=== PATIENT | male | born 1930 | race Caucasian/White ===

== ENCOUNTER 2016-05-21 13:06 | Observation (INO) | payer MEDICARE ==
--- NOTE | ~2016-05-21 | HP ---
History And Physical [address] [place]. [address] NAME: BRADEN MARTIN Jorgito GARCIA : [birth year] STATUS : ADM Katelin PAT#: [id number] AGE: 86 ADM/REG DATE : 05/21/16 MR#: [id number] REPORT SERV DATE: 05/22/16 DICTATED BY: Gilles HANNA DATE: 05/22/16 REPORT STATUS : Draft TRANSCRIBED BY: MODL DATE: 05/22/16 DATE OF ADMISSION: 05/21/2016 CHIEF COMPLAINT: Right flank pain with right hydronephrosis due to large bladder tumor. HISTORY OF PRESENT ILLNESS: Mr. Martin is an 86-year-old white male, known to me, seen recently for gross hematuria. Workup revealed suspicious cytology for high-grade cancer and an asymmetric partially calcified mass in the bladder near the right UVJ, which appeared to be at least 4 cm to 5 cm in size. There was no obstruction originally. He is scheduled for surgery with resection and possible stent placement on 05/22/2016. He came to the emergency room on the day of admission, complaining of increasing right flank pain over five to six days. No fever or chills. No nausea or vomiting. CT showed a similar tumor about 5 cm in size with right hydronephrosis to the UVJ. He was admitted for pain control. PAST MEDICAL HISTORY: Cataracts and basal cell carcinoma of the face. PAST SURGICAL HISTORY: Basal cell excision. HOME MEDICATIONS: None. ALLERGIES: NONE. SOCIAL HISTORY: The patient denies use of alcohol or tobacco. FAMILY HISTORY: Negative for urologic disease. REVIEW OF SYSTEMS: Full 12-point review of systems negative except as noted above. He denies specifically shortness of breath. No problems with blood clotting. He has no evidence of depression. No allergies. PHYSICAL EXAMINATION: GENERAL: Mildly uncomfortable 86-year-old white male. VITAL SIGNS: Afebrile, with normal vital signs. CHEST: Clear. HEART: Regular rate and rhythm. ABDOMEN: Soft, nontender, nondistended. No CVA tenderness. : Normal external genitalia. Prostate 2+ without induration or nodularity. EXTREMITIES: No peripheral edema noted. NEUROLOGIC: The patient is ambulatory. PERTINENT LABORATORY: Creatinine 1.82. Urinalysis shows red cells. No evidence of infection. Hemoglobin 11.7, white count 9200. CT the abdomen and pelvis was reviewed, shows right bladder mass with obstruction of the right ureter and some extravasation. IMPRESSION: History And Physical [facility] [address] [place] [address] NAME: BRADEN MARTIN MD : [birth year] STATUS : ADM Katelin PAT#: [id number] AGE: 86 ADM/REG DATE : 05/21/16 MR#: [id number] REPORT SERV DATE: 05/22/16 DICTATED BY: Gilles HANNA DATE: 05/22/16 REPORT STATUS : Draft TRANSCRIBED BY: MODL DATE: 05/22/16 1. Large bladder tumor. 2. Right ureteral obstruction due to bladder tumor. PLAN: 1. We will admit for pain control. 2. Keep n.p.o. after midnight. 3. Plan cysto, TURBT, right retrograde pyelogram, double-J stent placement on 05/22/2016. ORTEGAD/JORGE Gilles Hanna M.D. / [id number] CC: Abram Bryant M.D.
--- NOTE | ~2016-05-21 | DS ---
Discharge Summary [facility] [address] [place]. [address] NAME: BRADEN MARTIN MD : [birth year] STATUS : DIS Katelin PAT#: [id number] AGE: 86 ADM/REG DATE : 05/21/16 MR#: [id number] REPORT SERV DATE: 05/24/16 DICTATED BY: Gilles HANNA DATE: 05/23/16 REPORT STATUS : Draft TRANSCRIBED BY: MODL DATE: 05/23/16 ADMISSION DATE: 05/21/2016 DISCHARGE DATE: 05/23/2016 ADMISSION DIAGNOSIS: Right ureteral obstruction due to large bladder tumor. DISCHARGE DIAGNOSIS: Right ureteral obstruction due to large bladder tumor. PROCEDURES DURING ADMISSION: On 05/22/2016, cystoscopy, right retrograde pyelography, double J stent placement, TURBT of a large tumor, examination under anesthesia. COMPLICATIONS: None. 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 He was found to have a large bladder tumor near the right orifice, but no obstruction by CT scan. Over the week or so, after our office visit, he developed an increasing right flank pain and came necessitating an ER visit on 05/21/2016, which showed an obstruction on the right. Creatinine was mildly elevated and he had hydronephrosis. He was admitted for pain control. HOSPITAL COURSE AND TREATMENT: The patient was admitted. His pain control persisted. He was taken the OR as planned on 05/22/2016. A large bladder tumor was resected and in the middle of it, an orifice was found. A double J stent was placed at the same time. Due to the patient's creatinine elevation and other, it was decided to observe him overnight. He did reasonably well overnight. His catheter was removed, and he voided with typical stent discomfort. He felt that he wants to empty his bladder and his creatinine was less than 2. He was discharged on 05/23/2016 with the following instructions. DISCHARGE INSTRUCTIONS: 1. Home today. 2. Follow up in my office in one week to review pathology and proceed as indicated at that time. 3. He was reminded that his stent is not a permanent stent. ALVINO/JORGE Gilles Hanna M.D. / [id number] CC: Abram Bryant M.D.
--- NOTE | ~2016-05-21 | OP ---
Record Of Operation [facility] [address] [place]. [address] NAME: BRADEN MARTIN MD : [birth year] STATUS : ADM Katelin PAT#: [id number] AGE: 86 ADM/REG DATE : 05/21/16 MR#: [id number] REPORT SERV DATE: 05/22/16 DICTATED BY: Gliles HANNA DATE: 05/22/16 REPORT STATUS : Draft TRANSCRIBED BY: MODL DATE: 05/22/16 DATE OF PROCEDURE: 05/22/2016 PREOPERATIVE DIAGNOSES: 1. Large bladder tumor. 2. Right hydronephrosis due to #1. POSTOPERATIVE DIAGNOSES: 1. Large bladder tumor. 2. Right hydronephrosis due to #1. PROCEDURES: Cystoscopy, TURBT (greater than 5 cm lesion), right retrograde pyelogram, double J stent placement, examination under anesthesia. SURGEON: Gilles Hanna M.D. ANESTHESIA: General endotracheal. COMPLICATIONS: Difficult ureteral access. DRAINS: 1. Right 7-Azerbaijani x 22 cm Contour double-J stent. 2. A 22-Azerbaijani two-way Kaur catheter. 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 He developed pain and was admitted yesterday with hydronephrosis presumed due to this mass. He is here for the above procedure. The risks of bleeding, infection, anesthesia, injury to adjacent organs, inability to eradicate disease, need for further therapy, inability to place stent, stent misery, etc. were all discussed. There were no unanswered questions. DESCRIPTION OF PROCEDURE: Under excellent general anesthesia, the patient was prepped and draped in a standard lithotomy position. Digital exam revealed a 2+ symmetric smooth prostate. No palpable pelvic masses were noted. Cystoscopy was performed with a 30-and 70- degree lenses and the anterior urethra was normal without evidence of obstruction. He had some lateral lobe BPH and a mildly elevated median bar. Inspection of bladder revealed mild trabeculation throughout with a normal left orifice. There was a sessile tumor covering part of the right bladder wall and base completely obliterating the ureteral orifice. It was at least 5 cm in diameter or probably more. I inserted the 26-Azerbaijani Storz resectoscope and began the resection of this tumor and it was a broad-based and really did not bleed that much. I resected specimen 1, has tumor down to the bladder wall and then sent a second specimen of tumor base. If bile appearance, this is an invasive tumor. I still could not see the orifice with any degree of certainty, so I gave methylene blue as Indigo [place] was unavailable. After 12 to 15 minutes, I still did not see any blue in the bladder, but I found a peristalsing area within the middle of the tumor bed and was able to advance the Glidewire through a 5-Azerbaijani open-ended catheter up to the level of the kidney. I dilutely Record Of Operation [facility] [id number] [facility] [place]. [address] NAME: BRADEN MARTIN MD : [birth year] STATUS : ADM Katelin PAT#: [id number] AGE: 86 ADM/REG DATE : 05/21/16 MR#: [id number] REPORT SERV DATE: 05/22/16 DICTATED BY: Gilles HANNA DATE: 05/22/16 REPORT STATUS : Draft TRANSCRIBED BY: JORGE DATE: 05/22/16 opacified the collecting system and then over the wire, placed a 7-Azerbaijani x 22 cm Contour double-J stent. It coiled nicely in the renal pelvis and bladder. I then placed a 22- Azerbaijani two-way Kaur catheter with 10 mL of sterile water and planned to send the patient to recovery room. Due to his elevated creatinine and pain issues, I think they will observe him overnight with plans to discharge in the morning after his catheter comes out and follow up in one week to review pathology. I had a long discussion with the patient's family postoperatively. ALVINO/JORGE Gilles Hanna M.D. / [id number] CC: Abram Bryant M.D.
[2016-05-21 11:52] LABS: BASOPHILS 0.4 %; BASOPHILS ABSOLUTE 0.02 10/3/uL (0.0-0.16); EOSINOPHILS ABSOLUTE 0.14 10/3/uL (0.0-0.53); ER CBC TAT 0 Hrs 10 Mins; HEMATOCRIT 35.9 % (40.0-51.0); HEMOGLOBIN 11.9 g/dL (13.6-17.8); IMMATURE GRANULOCYTES 0.2 %; IMMATURE GRANULOCYTES ABSOLUTE 0.01 10/3/uL (0.0-0.11); LYMPHOCYTES 16.7 %; LYMPHOCYTES ABSOLUTE 0.77 10/3/uL (0.67-4.30); MEAN CORPUS HGB CONC 33.1 g/dL (32.0-36.0); MEAN CORPUSCULAR VOLUME 90.4 fL (80-100); MEAN PLATELET VOLUME 11.2 fL (9.2-13.0); MONOCYTES 7.2 %; MONOCYTES ABSOLUTE 0.33 10/3/uL (0.21-1.20); NEUTROPHILS 72.5 %; NEUTROPHILS ABSOLUTE 3.34 10/3/uL (2.02-8.40); PLATELET COUNT 154 10/3/uL (150-400); RBC DISTRIBUTION WIDTH 14.6 % (12.0-16.0); RED CELL COUNT 3.97 10/6/uL (4.7-6.1); WHITE BLOOD CELLS 4.6 10/3/uL (4.5-10.5)
[2016-05-21 11:53] LABS: MANUAL DIFF NO %
[2016-05-21 12:07] LABS: A/G RATIO 0.7 (0.7-1.9); ALBUMIN 3.2 G/DL (3.5-5.0); BUN (BLOOD UREA NITROGEN) 28 MG/DL (6-23); CALCIUM, SERUM 8.6 MG/DL (8.5-10.4); CHLORIDE, SERUM 105 MMOL/L (96-112); CO2 (CARBON DIOXIDE) 26 MMOL/L (24-34); CREATININE 1.82 MG/DL (0.70-1.30); GFR AFRICAN AMERICAN 38 ML/MIN (>=60); GFR NON AFRICAN AMERICAN 32 ML/MIN (>=60); GLOBULIN 4.8 G/DL (2.5-4.1); GLUCOSE, SERUM 93 MG/DL (60-99); POTASSIUM, SERUM 4.7 MMOL/L (3.5-5.3); SGOT(AST) 18 U/L (5-40); SGPT(ALT) 13 U/L (5-65); SODIUM, SERUM 141 MMOL/L (135-148); TOTAL BILIRUBIN 0.8 MG/DL (0-1.2)
[2016-05-21 12:08] LABS: ALKALINE PHOSPHATASE 63 U/L (45-117)
[2016-05-21] MEDS ORDERED: *DENIES (13:13)
[2016-05-21 20:23] LABS: WBC (NOT ORDERED) (RFLEX) 0 (0-5)
[2016-05-21 20:43] LABS: ASCORBIC ACID (UR NOT ORDER) NEG (NEG); BILIRUBIN, URINE NEGATIVE (NEG); KETONE, URINE TRACE MG/DL (NEG); LEUKOCYTE ESTERASE(NOT OR NEG (NEG)
[2016-05-22 06:03] LABS: BASOPHILS 0.1 %; BASOPHILS ABSOLUTE 0.01 10/3/uL (0.0-0.16); EOSINOPHILS 0.4 %; EOSINOPHILS ABSOLUTE 0.04 10/3/uL (0.0-0.53); HEMATOCRIT 36.1 % (40.0-51.0); HEMOGLOBIN 11.7 g/dL (13.6-17.8); IMMATURE GRANULOCYTES 0.1 %; IMMATURE GRANULOCYTES ABSOLUTE 0.01 10/3/uL (0.0-0.11); LYMPHOCYTES 8.7 %; MEAN CORPUS HGB CONC 32.4 g/dL (32.0-36.0); MEAN CORPUSCULAR HEMOGLOB 30.2 pg (26.0-34.0); MEAN PLATELET VOLUME 11.2 fL (9.2-13.0); MONOCYTES 7.1 %; MONOCYTES ABSOLUTE 0.65 10/3/uL (0.21-1.20); NEUTROPHILS 83.6 %; NEUTROPHILS ABSOLUTE 7.66 10/3/uL (2.02-8.40); PLATELET COUNT 155 10/3/uL (150-400); RBC DISTRIBUTION WIDTH 14.7 % (12.0-16.0); RED CELL COUNT 3.88 10/6/uL (4.7-6.1)
[2016-05-22 06:05] LABS: MANUAL DIFF NO %; WHITE BLOOD CELLS 9.2 10/3/uL (4.5-10.5)
[2016-05-22 06:13] LABS: BUN (BLOOD UREA NITROGEN) 30 MG/DL (6-23); CALCIUM, SERUM 8.6 MG/DL (8.5-10.4); CHLORIDE, SERUM 106 MMOL/L (96-112); CO2 (CARBON DIOXIDE) 24 MMOL/L (24-34); CREATININE 2.07 MG/DL (0.70-1.30); GFR AFRICAN AMERICAN 32 ML/MIN (>=60); GFR NON AFRICAN AMERICAN 28 ML/MIN (>=60); GLUCOSE, SERUM 93 MG/DL (60-99); POTASSIUM, SERUM 4.6 MMOL/L (3.5-5.3); SODIUM, SERUM 141 MMOL/L (135-148)
[2016-05-23 06:51] LABS: BASOPHILS 0.1 %; BASOPHILS ABSOLUTE 0.01 10/3/uL (0.0-0.16); EOSINOPHILS 1.4 %; EOSINOPHILS ABSOLUTE 0.13 10/3/uL (0.0-0.53); HEMATOCRIT 33.3 % (40.0-51.0); HEMOGLOBIN 10.9 g/dL (13.6-17.8); IMMATURE GRANULOCYTES 0.2 %; IMMATURE GRANULOCYTES ABSOLUTE 0.02 10/3/uL (0.0-0.11); LYMPHOCYTES 8.8 %; MEAN CORPUS HGB CONC 32.7 g/dL (32.0-36.0); MEAN CORPUSCULAR HEMOGLOB 29.5 pg (26.0-34.0); MEAN PLATELET VOLUME 11.3 fL (9.2-13.0); MONOCYTES 9.5 %; MONOCYTES ABSOLUTE 0.86 10/3/uL (0.21-1.20); NEUTROPHILS ABSOLUTE 7.22 10/3/uL (2.02-8.40); PLATELET COUNT 119 10/3/uL (150-400); RBC DISTRIBUTION WIDTH 14.8 % (12.0-16.0)
[2016-05-23 06:52] LABS: MANUAL DIFF NO %
[2016-05-23 07:02] LABS: BUN (BLOOD UREA NITROGEN) 24 MG/DL (6-23); CALCIUM, SERUM 8.3 MG/DL (8.5-10.4); CHLORIDE, SERUM 102 MMOL/L (96-112); CO2 (CARBON DIOXIDE) 26 MMOL/L (24-34); CREATININE 1.64 MG/DL (0.70-1.30); GFR AFRICAN AMERICAN 43 ML/MIN (>=60); GFR NON AFRICAN AMERICAN 37 ML/MIN (>=60); GLUCOSE, SERUM 96 MG/DL (60-99); POTASSIUM, SERUM 4.3 MMOL/L (3.5-5.3); SODIUM, SERUM 139 MMOL/L (135-148)
[2016-05-23] MEDS ORDERED: PYR200 PO (14:37)
[2016-07-28] MEDS ORDERED: CHEMO THERAPY (22:27)
[2016-12-08] MEDS ORDERED: NORV5 PO (09:07)
[2016-12-08] MEDS ORDERED: PROZ10 PO (09:07)
[2016-12-08] MEDS ORDERED: FLOMAX4 PO (09:08)
[2016-12-08] MEDS ORDERED: B COMPLETE PO (09:51)
[2016-12-08] MEDS ORDERED: CRANBERRY300 MG PO (09:52)
[2016-12-20] MEDS ORDERED: CAT1 PO ×2 (14:27→14:32)
[2016-12-20] MEDS ORDERED: MIRALAX POWDER1 PKT PO (14:28)
[2016-12-20] MEDS ORDERED: PROBIOTIC PO (14:29)
[2016-12-20] MEDS ORDERED: CRANBERRY400 MG PO (14:30)
[2016-12-20] MEDS ORDERED: LORTAB PO (14:33)
== END 2016-05-23 15:17 | disposition home or self-care (01) ==
LOC: ER 13:06 → 4SO 13:46
PROVIDERS: Emergency Medicine
PROC: BT1DYZZ Fluoroscopy of Right Kidney, Ureter and Bladder using Other Contrast (ICD-10-PCS; 2016-05-22)
PROC: 0TBB8ZZ Excision of Bladder, Via Natural or Artificial Opening Endoscopic (ICD-10-PCS; principal; 2016-05-22 08:15)
PROC: 0T768DZ Dilation of Right Ureter with Intraluminal Device, Via Natural or Artificial Opening Endoscopic (ICD-10-PCS; 2016-05-22 08:15)
DX: C67.9 Malignant neoplasm of bladder, unspecified (principal); N18.9 Chronic kidney disease, unspecified; N40.0 Benign prostatic hyperplasia without lower urinary tract symptoms; Z98.890 Other specified postprocedural states
CPT/HCPCS: 74176; 80048; 80053; 81001; 85025; 88307; 96374; 96376; 99285; C1758; C1769; C2617; G0378; J1170; J2405; J2710; J3010; Q9967

== ENCOUNTER 2016-07-28 22:36 | Emergency (ER) | payer MEDICARE ==
[~2016-07-28 22:36] MED LIST: *DENIES; CHEMO THERAPY; PYR200 PO
[2016-07-28 23:18] LABS: BASOPHILS 0.6 %; BASOPHILS ABSOLUTE 0.02 10/3/uL (0.0-0.16); EOSINOPHILS 2.5 %; EOSINOPHILS ABSOLUTE 0.09 10/3/uL (0.0-0.53); HEMOGLOBIN 9.9 g/dL (13.6-17.8); LYMPHOCYTES 14.9 %; LYMPHOCYTES ABSOLUTE 0.54 10/3/uL (0.67-4.30); MEAN CORPUS HGB CONC 33.7 g/dL (32.0-36.0); MEAN CORPUSCULAR HEMOGLOB 31.3 pg (26.0-34.0); MEAN PLATELET VOLUME 10.8 fL (9.2-13.0); MONOCYTES 18.2 %; MONOCYTES ABSOLUTE 0.66 10/3/uL (0.21-1.20); NEUTROPHILS 63.8 %; NEUTROPHILS ABSOLUTE 2.32 10/3/uL (2.02-8.40); PLATELET COUNT 106 10/3/uL (150-400); RBC DISTRIBUTION WIDTH 14.9 % (12.0-16.0); RED CELL COUNT 3.16 10/6/uL (4.7-6.1)
[2016-07-28 23:20] LABS: ER CBC TAT 0 Hrs 10 Mins; HEMATOCRIT 29.4 % (40.0-51.0); MANUAL DIFF NO %; WHITE BLOOD CELLS 3.6 10/3/uL (4.5-10.5)
[2016-07-28 23:34] LABS: A/G RATIO 0.8 (0.7-1.9); ALBUMIN 3.1 G/DL (3.5-5.0); ALKALINE PHOSPHATASE 53 U/L (45-117); CALCIUM, SERUM 8.2 MG/DL (8.5-10.4); CHLORIDE, SERUM 109 MMOL/L (96-112); CO2 (CARBON DIOXIDE) 25 MMOL/L (24-34); CREATININE 1.31 MG/DL (0.70-1.30); GFR AFRICAN AMERICAN 56 ML/MIN (>=60); GFR NON AFRICAN AMERICAN 48 ML/MIN (>=60); GLUCOSE, SERUM 93 MG/DL (60-99); LACTATE 0.7 MMOL/L (0.3-2.4); POTASSIUM, SERUM 4.3 MMOL/L (3.5-5.3); SGOT(AST) 19 U/L (5-40); SGPT(ALT) 18 U/L (5-65); SODIUM, SERUM 143 MMOL/L (135-148); TOTAL BILIRUBIN 0.4 MG/DL (0-1.2); TOTAL PROTEIN 6.9 G/DL (6.0-8.5)
[2016-07-28 23:38] LABS: BUN (BLOOD UREA NITROGEN) 19 MG/DL (6-23); GLOBULIN 3.8 G/DL (2.5-4.1)
[2016-07-28 23:47] LABS: INFLUENZA A SCREEN NEGATIVE (NEGATIVE); INFLUENZA B SCREEN NEGATIVE (NEGATIVE)
[2016-07-29] LABS: INTERNATIONAL NORMAL RATI 1.1 UNITS (-); PARTIAL THROMBO TIME 25.9 SEC (22.5-37.2); PROTIME (NOT ORD) 14.1 SEC (12.0-14.5)
[2016-07-29 00:26] LABS: PROCALCITONIN 0.07 ng/mL (<0.5)
[2016-12-08] MEDS ORDERED: PROZ10 PO (09:07)
[2016-12-08] MEDS ORDERED: NORV5 PO (09:07)
[2016-12-08] MEDS ORDERED: FLOMAX4 PO (09:08)
[2016-12-08] MEDS ORDERED: B COMPLETE PO (09:51)
[2016-12-08] MEDS ORDERED: CRANBERRY300 MG PO (09:52)
[2016-12-20] MEDS ORDERED: CAT1 PO ×2 (14:27→14:32)
[2016-12-20] MEDS ORDERED: MIRALAX POWDER1 PKT PO (14:28)
[2016-12-20] MEDS ORDERED: PROBIOTIC PO (14:29)
[2016-12-20] MEDS ORDERED: CRANBERRY400 MG PO (14:30)
[2016-12-20] MEDS ORDERED: LORTAB PO (14:33)
== END 2016-07-29 00:33 | disposition short-term general hospital (02) ==
LOC: ER 22:36
PROVIDERS: Nurse Practitioner
DX: I60.9 Nontraumatic subarachnoid hemorrhage, unspecified (principal); I61.9 Nontraumatic intracerebral hemorrhage, unspecified; Z85.51 Personal history of malignant neoplasm of bladder
CPT/HCPCS: 70450; 71010; 80053; 81001; 83605; 84145; 85025; 85610; 85730; 87040; 87804; 93005; 96365; 99285; J0692